=== PATIENT | male | born 1990 | race Caucasian/White ===

== ENCOUNTER 2017-11-02 21:02 | Emergency (ER) | payer OTHER ==
[~2017-11-02] VITALS: Ht 177.8 cm; Wt 81.4 kg
[~2017-11-02 21:02] MED LIST: BACTRIM,SEPT1 TABLET PO; COLACE100 MG PO; KEFLEX500 MG PO; MOTRIN600 MG PO; MOTRIN800 MG PO; NORCO 10/3251 TABLET PO; NORCO 5/3251 TABLET PO
[2017-11-02] MEDS ORDERED: INDOCIN25 MG PO (21:35)
[2017-11-02] MEDS ORDERED: AUGMENTIN875 MG PO (21:35)
[2017-11-02] MEDS ORDERED: LIDOCAINE20 MG/1 M5 PO (21:35)
[2017-11-02 22:13] VITALS: BP 159/91
== END 2017-11-02 22:14 | disposition home or self-care (01) ==
LOC: EME 21:02
DX: K02.9 Dental caries, unspecified (principal); B99.9 Unspecified infectious disease; F17.200 Nicotine dependence, unspecified, uncomplicated; Z87.820 Personal history of traumatic brain injury; Z98.890 Other specified postprocedural states
CPT/HCPCS: 99281; 99284